=== PATIENT | male | born 1940 | race Caucasian/White ===

== ENCOUNTER 2017-04-03 06:36 | Inpatient (IN) | payer MEDICARE ==
[~2017-04-03] VITALS: Ht 188 cm; Wt 95.7 kg
[2017-04-03] VITALS (12 sets, daily range): BP systolic 97–129; BP diastolic 64–88; PULSE 58–120; TEMP 97.1–98.6
[~2017-04-03 06:36] MED LIST: NO HOME MEDICATIONS
[2017-04-03 07:21] LABS: HEMOGLOBIN 13.5 g/dl (13.5-18.0); MEAN CELL VOLUME 98 fl (80.0-100.0); MEAN CORPUSCULAR HEMOGLOBIN 34 pg (27.0-31.0); MEAN CORPUSCULAR HGB CONC 35 g/dl (33.0-37.0); MEAN PLATELET VOLUME 8.9 fl (7.4-10.4); PLATELET COUNT 233 K/mm3 (130-400); RED BLOOD COUNT 3.97 M/mm3 (4.20-5.60); REDCELL DISTRIBUTION WIDTH-CV 11.7 % (11.5-14.5)
[2017-04-03 07:26] LABS: INR 1.4 (0.8-3.0); PROTHROMBIN TIME 15.3 SECONDS (9.7-12.8)
[2017-04-03] MEDS ORDERED: TOPROL XL 25MG25 MG PO ×2 (07:27→07:28)
[2017-04-03 07:28] LABS: CALCIUM 9.3 mg/dL (8.4-10.2); CREATININE, serum 1.16 mg/dL (0.66-1.25)
[2017-04-03] MEDS ORDERED: XARELTO15 MG PO (07:28)
[2017-04-03] MEDS ORDERED: LANOXIN 0.25M0.25 MG PO (07:30)
[2017-04-03] MEDS ORDERED: LASIX 20MG TABL20 MG PO (07:30)
[2017-04-04 04:25] VITALS: BP 110/61; PULSE 58; TEMP 97.8
[2017-04-04 06:54] LABS: HEMATOCRIT 35.8 % (42.0-52.0); HEMOGLOBIN 12.1 g/dl (13.5-18.0); MEAN CELL VOLUME 98 fl (80.0-100.0); MEAN CORPUSCULAR HEMOGLOBIN 33 pg (27.0-31.0); MEAN CORPUSCULAR HGB CONC 34 g/dl (33.0-37.0); MEAN PLATELET VOLUME 9.3 fl (7.4-10.4); PLATELET COUNT 215 K/mm3 (130-400); RED BLOOD COUNT 3.65 M/mm3 (4.20-5.60); REDCELL DISTRIBUTION WIDTH-CV 11.9 % (11.5-14.5); WHITE BLOOD COUNT 7.2 K/mm3 (4.8-10.8)
[2017-04-04 07:12] LABS: CREATININE, serum 0.98 mg/dL (0.66-1.25); MAGNESIUM 1.9 mg/dL (1.6-2.3); POTASSIUM 4.1 mmol/L (3.4-5.0)
[2017-04-04 08:58] VITALS: BP 108/66; PULSE 55; TEMP 98
[2017-04-04 12:51] VITALS: BP 115/68; PULSE 56; TEMP 98.2
[2017-04-04 16:12] VITALS: BP 110/60; PULSE 56; TEMP 98.2
[2017-04-04 19:38] VITALS: BP 117/62; PULSE 52; TEMP 98.3
[2017-04-04 22:33] VITALS: BP 140/62; PULSE 51; PULSE 92; TEMP 98
[2017-04-05 04:27] VITALS: BP 110/62; PULSE 54; TEMP 98.3
[2017-04-05 07:52] LABS: HEMATOCRIT 37.7 % (42.0-52.0); HEMOGLOBIN 12.9 g/dl (13.5-18.0); MEAN CELL VOLUME 99 fl (80.0-100.0); MEAN CORPUSCULAR HEMOGLOBIN 34 pg (27.0-31.0); MEAN CORPUSCULAR HGB CONC 34 g/dl (33.0-37.0); MEAN PLATELET VOLUME 9.4 fl (7.4-10.4); PLATELET COUNT 233 K/mm3 (130-400); REDCELL DISTRIBUTION WIDTH-CV 11.9 % (11.5-14.5); WHITE BLOOD COUNT 6.7 K/mm3 (4.8-10.8)
[2017-04-05 07:57] LABS: CALCIUM 9.2 mg/dL (8.4-10.2)
[2017-04-05 08:21] VITALS: BP 107/66; PULSE 59; TEMP 97.1
[2017-04-05] MEDS ORDERED: BETAPACE 80MG80 MG PO (10:24)
== END 2017-04-05 10:30 | disposition home or self-care (01) | DRG 310 ==
LOC: COL.CAR 06:36 → MEDICAL 10:51 → COL.CAR 10:52 → MEDICAL 10:52 → COL.CAR 04-05 10:30
PROVIDERS: Internal Medicine Cardiovascular Disease
PROC: 5A2204Z Restoration of Cardiac Rhythm, Single (ICD-10-PCS; principal; 2017-04-03)
DX: I48.92 Unspecified atrial flutter (principal); I10 Essential (primary) hypertension
CPT/HCPCS: OP; G9654; J2704; J3010